=== PATIENT | female | born 1950 | race Two or more races ===

== ENCOUNTER 2020-09-04 11:32 | Emergency (ER) | payer MEDICAID, OTHER ==
[~2020-09-04] VITALS: Ht 152.4 cm; Wt 63.5 kg
[2020-09-04 11:55] VITALS: BP 134/70
[2020-09-04 12:10] LABS: Basophils # (auto) 0 10 ^3/uL (0-0.2); Basophils % (auto) 0.8 % (0.0-2.0); Eosinophils # (auto) 0.1 10 ^3/uL (0-0.8); Eosinophils % (auto) 1.6 % (0.0-7.0); Hematocrit 40.4 % (36.0-46.0); Hemoglobin 13.8 g/dL (12.2-16.2); Lymphocytes # (auto) 1.9 10 ^3/uL (0.4-5.4); Lymphocytes % (auto) 30.8 % (10.0-50.0); Mean Corpuscular Hemoglobin 29.4 pg (28.0-32.0); Mean Corpuscular Hgb Conc. 34.2 g/dL (32.0-36.0); Mean Corpuscular Volume 86.1 fL (80.0-100.0); Monocytes # (auto) 0.4 10 ^3/uL (0-1.3); Monocytes % (auto) 6.6 % (0.0-12.0); Neutrophils # (auto) 3.8 10 ^3/uL (1.6-8.6); Neutrophils % (auto) 60.2 % (37.0-80.0); Nucleated Red Blood Cells % 0.3 %; Platelet Count (auto) 302 10^3/uL (140-450); Red Blood Cells 4.69 10^6/uL (4.0-5.20); Red Cell Distribution Width 12.1 % (11.8-14.3); White Blood Cell 6.3 10^3/uL (4.4-10.8)
[2020-09-04 12:22] LABS: INR 1.01 (0.9-1.15); Partial Thromboplastin Time 21.8 sec (23.0-31.2)
[2020-09-04 12:36] LABS: Potassium 3.8 mmol/L (3.5-5.1)
[2020-09-04 12:42] LABS: Albumin 3.7 g/dL (3.4-5.0); BUN/Creatinine Ratio 18.8; Bilirubin, Total 0.2 mg/dL (0.2-1.0); Calcium 8.9 mg/dL (8.5-10.1); Total Protein 7.4 g/dL (6.4-8.2)
== END 2020-09-04 12:54 | disposition home or self-care (01) ==
LOC: ER 11:32
DX: G51.0 Bell's palsy (principal); E11.9 Type 2 diabetes mellitus without complications; I10 Essential (primary) hypertension; Z90.49 Acquired absence of other specified parts of digestive tract
CPT/HCPCS: 36415; 70450; 80053; 85025; 85610; 85730; 93005

== ENCOUNTER 2022-01-09 09:18 | Emergency (ER) | payer MEDICAID ==
[~2022-01-09] VITALS: Ht 157.5 cm; Wt 64.5 kg
[2022-01-09 11:28] LABS: Basophils # (auto) 0.1 10 ^3/uL (0-0.2); Basophils % (auto) 0.8 % (0.0-2.0); Eosinophils # (auto) 0.1 10 ^3/uL (0-0.8); Eosinophils % (auto) 1.6 % (0.0-7.0); Hematocrit 38.9 % (36.0-46.0); Hemoglobin 12.9 g/dL (12.2-16.2); Lymphocytes # (auto) 1.6 10 ^3/uL (0.4-5.4); Lymphocytes % (auto) 26.8 % (10.0-50.0); Mean Corpuscular Hemoglobin 28.2 pg (28.0-32.0); Mean Corpuscular Volume 85.3 fL (80.0-100.0); Monocytes # (auto) 0.5 10 ^3/uL (0-1.3); Monocytes % (auto) 7.7 % (0.0-12.0); Neutrophils # (auto) 3.8 10 ^3/uL (1.6-8.6); Neutrophils % (auto) 63.1 % (37.0-80.0); Red Blood Cells 4.56 10^6/uL (4.0-5.20); Red Cell Distribution Width 12.5 % (11.8-14.3); White Blood Cell 6.1 10^3/uL (4.4-10.8)
[2022-01-09 11:45] LABS: Albumin 3.9 g/dL (3.4-5.0); Calcium 9.2 mg/dL (8.5-10.1); Potassium 4.1 mmol/L (3.5-5.1)
[2022-01-09 11:50] LABS: BUN/Creatinine Ratio 18.1; Bilirubin, Total 0.5 mg/dL (0.2-1.0); Total Protein 7.6 g/dL (6.4-8.2)
[2022-01-09 12:46] LABS: Urine Bacteria NONE SEEN /hpf (None Seen); Urine Blood Negative /uL (Negative); Urine Specific Gravity 1.011 (1.001-1.035); Urine WBC 2 /hpf (0 - 5)
[2022-01-09 13:00] VITALS: BP 124/68
[2022-01-09] MEDS ORDERED: CIPR-173 PO (13:20)
[2022-01-09] MEDS ORDERED: ACET-1080 PO (13:20)
== END 2022-01-09 13:26 | disposition home or self-care (01) ==
LOC: ER 09:18
DX: N39.0 Urinary tract infection, site not specified (principal); N85.8 Other specified noninflammatory disorders of uterus; E11.9 Type 2 diabetes mellitus without complications; I10 Essential (primary) hypertension; Z90.49 Acquired absence of other specified parts of digestive tract
CPT/HCPCS: 36415; 74176; 76856; 80053; 81001; 83690; 85025

== ENCOUNTER 2022-04-02 07:34 | Emergency (ER) | payer MEDICAID ==
[~2022-04-02] VITALS: Ht 147.3 cm; Wt 142.0 kg
[~2022-04-02 07:34] MED LIST: ACET-1080 PO; CIPR-173 PO
[2022-04-02 08:58] VITALS: BP 150/75
[2022-04-02] MEDS ORDERED: ACETAMINOPHEN 500 MG TAB PO ONE (09:00)
[2022-04-02 09:08] LABS: Urine Bacteria NONE SEEN /hpf (None Seen); Urine Blood Negative /uL (Negative); Urine Specific Gravity 1.007 (1.001-1.035); Urine WBC <1 /hpf (0 - 5)
[2022-04-02] MEDS ORDERED: AMOX-277 PO (09:51)
[2022-04-02] MEDS ORDERED: ACET-1080 PO (09:51)
== END 2022-04-02 10:00 | disposition home or self-care (01) ==
LOC: ER 07:34
DX: R51.9 Headache, unspecified (principal); H65.03 Acute serous otitis media, bilateral; I10 Essential (primary) hypertension; E11.9 Type 2 diabetes mellitus without complications; Z90.49 Acquired absence of other specified parts of digestive tract; Z79.2 Long term (current) use of antibiotics; Z79.899 Other long term (current) drug therapy
CPT/HCPCS: 70450; 81001; 82962

== ENCOUNTER 2022-04-14 06:29 | Emergency (ER) | payer MEDICAID ==
[~2022-04-14] VITALS: Ht 152.4 cm; Wt 68.0 kg
[~2022-04-14 06:29] MED LIST changes: +AMOX-277 PO
[2022-04-14 06:41] VITALS: BP 127/75
== END 2022-04-14 07:49 | disposition home or self-care (01) ==
LOC: ER 06:29
DX: H92.03 Otalgia, bilateral (principal); E11.9 Type 2 diabetes mellitus without complications; Z88.1 Allergy status to other antibiotic agents

== ENCOUNTER 2022-09-12 17:11 | Emergency (ER) | payer MEDICAID ==
[~2022-09-12] VITALS: Ht 157.5 cm; Wt 60.5 kg
[2022-09-12 18:41] VITALS: BP 126/68
[2022-09-12] MEDS ORDERED: AMOX-277 PO (18:43)
[2022-09-12] MEDS ORDERED: ACET-1158 PO (18:43)
[2022-09-12] MEDS ORDERED: PRED10TA PO (18:43)
[2022-09-12] MEDS ORDERED: methylPREDNISolone SOD SUCC 125 MG/2 ML VL IM ONE (18:45)
[2022-09-12] MEDS ORDERED: cefTRIAXone SOD 1,000 MG VL IM ONE (18:45)
== END 2022-09-12 18:44 | disposition home or self-care (01) ==
LOC: ER 17:11
DX: J06.9 Acute upper respiratory infection, unspecified (principal); H66.91 Otitis media, unspecified, right ear; E11.9 Type 2 diabetes mellitus without complications; R51.9 Headache, unspecified
CPT/HCPCS: 71046; 93005; 96372; 99284; J0696; J2930

== ENCOUNTER → 2024-06-26 | Outpatient (CLI) | payer MEDICAID ==
[~2024-06-26] MED LIST changes: +ACET500T58 PO; +ALBUTEROL SULF 2.5 MG/0.5ML(0.5%) NEB SOLN ONE; -AMOX-277 PO; +AMOX875T4 PO; +PRED10TA PO
--- NOTE | 2024-07-02 19:48 | DVHNC2 ---
Procedure - June 26, 2024 Pulmonary function test interpretation No obstructive or restrictive ventilatory defect. Significant bronchodilator response. Total lung capacity is 99% of predicted (3.96 L), within normal limits. Diffusion capacity is within normal limits, 113% of predicted. DEV POWERS MD Jul 02, 2024 19:48
--- NOTE | 2024-07-02 19:50 | DVHNC2 ---
Procedure - June 26, 2024 6 minute walk test interpretation Completed 6 minutes of ambulation. Expected heart rate achieved. No significant desaturation with exertion. Mild reduction in distance walk DEV POWERS MD Jul 02, 2024 19:50
== END | disposition home or self-care (01) ==
LOC: RT 14:48
PROVIDERS: ATTEND Internal Medicine Pulmonary Disease
DX: R06.09 Other forms of dyspnea (principal)
CPT/HCPCS: 94060; 94618; 94727; 94729